=== PATIENT | female | born 1955 | race Caucasian/White ===

== ENCOUNTER 2019-11-09 13:37 | Emergency (ER) | payer MEDICAID ==
[~2019-11-09] VITALS: Ht 152.4 cm; Wt 50.0 kg
[2019-11-09 13:43] VITALS: BP 106/73
--- NOTE | 2019-11-09 14:39 | NUR ---
TERRY AT [facility] ACCEPTED PT AND TOLD NC MANAGER THAT A BED WILL BE AVABLE FOR PT
== END 2019-11-09 15:05 | disposition home or self-care (01) ==
LOC: ED 14:45
DX: F10.220 Alcohol dependence with intoxication, uncomplicated (principal); I10 Essential (primary) hypertension; Z90.710 Acquired absence of both cervix and uterus; Z88.8 Allergy status to other drugs, medicaments and biological substances; Y90.9 Presence of alcohol in blood, level not specified
CPT/HCPCS: 99283

== ENCOUNTER 2020-02-23 15:14 | Emergency (ER) | payer MEDICAID ==
[~2020-02-23] VITALS: Ht 152.4 cm; Wt 48.0 kg
[2020-02-23 15:47] VITALS: BP 139/106
[2020-02-23] MEDS ORDERED: SODIUM CHLORIDE 0.9% 1,000ML IVBOLUS ONE (16:00)
[2020-02-23] MEDS ORDERED: THIAMINE 50MG TABLET PO ONE (16:00)
[2020-02-23] MEDS ORDERED: SODIUM CHLORIDE FLUSH 10ML SYR IVF ONE (16:00)
[2020-02-23] MEDS ORDERED: LORazepam 2 MG/ML, 1ML IVPush ONE (16:00)
[2020-02-23] MEDS ORDERED: LORazepam 2 MG/ML, 1ML ONE (16:06)
[2020-02-23] MEDS ORDERED: THIAMINE 100MG TABLET ONE (16:06)
[2020-02-23 16:30] LABS: BASOPHILS % (AUTO) 1 % (0-1); EOSINOPHILS % (AUTO) 0 % (1-7); LYMPHOCYTES % (AUTO) 37 % (22-44); MEAN CORPUSCULAR HEMOGLOBIN 31.2 pg (27.0-34.8); MEAN CORPUSCULAR HGB CONC 33.2 g/dL (32.4-35.8); MEAN PLATELET VOLUME 6.9 fL (7.4-10.4); MONOCYTES % (AUTO) 7 % (2-9); NEUTROPHILS % (AUTO) 55 % (42-75); PLATELET COUNT 284 x10^3/uL (130-400); RED BLOOD COUNT 4.04 x10^6/uL (3.82-5.3); RED CELL DISTRIBUTION WIDTH 13.7 % (9.6-15.2)
[2020-02-23 16:33] LABS: MD NO
[2020-02-23 16:41] LABS: ALBUMIN 3.4 g/dL (3.4-5.0); ANION GAP 12 mmol/L (5-15); CALCIUM 8.1 mg/dL (8.5-10.1); CHLORIDE 111 mmol/L (98-107)
--- NOTE | 2020-02-23 16:42 | NUR ---
PT SIGNED OUT AMA. PT STATES SHE IS CHECKING HERSELF INTO [facility].
[2020-02-23 16:47] LABS: ALANINE AMINOTRANSFERASE 27 U/L (12-78); ALKALINE PHOSPHATASE 148 U/L (45-117); BILIRUBIN,TOTAL 0.6 mg/dL (0.2-1.0); CREATININE 0.85 mg/dL (0.55-1.02); TOTAL PROTEIN 7.5 g/dL (6.4-8.2)
== END 2020-02-23 16:43 | disposition left against medical advice (07) ==
LOC: ED 16:35
DX: F10.129 Alcohol abuse with intoxication, unspecified (principal); R11.2 Nausea with vomiting, unspecified; R19.7 Diarrhea, unspecified; I10 Essential (primary) hypertension; Z90.710 Acquired absence of both cervix and uterus; Y90.9 Presence of alcohol in blood, level not specified
CPT/HCPCS: 36415; 80053; 80307; 85025; 96374; 99283; J2060; J7030

== ENCOUNTER 2020-03-09 17:55 | Emergency (ER) | payer MEDICAID ==
[~2020-03-09] VITALS: Ht 152.4 cm; Wt 50.0 kg
--- NOTE | 2020-03-09 18:46 | NUR ---
pt in bed, no distress,
--- NOTE | 2020-03-09 18:57 | NUR ---
REPORT OF PT FROM TORREY RAY AND ASSUMING CARE OF PT AT THIS TIME. PT SITTING IN [facility] WITH ALINE. CALL LIGHT IS WITHIN REACH.
--- NOTE | 2020-03-09 19:42 | NUR ---
PT D/C WITH D/C SUMMARY AND A [facility]AXI VOUCHER TO [facility] PER PT REQUEST. PT AMBULATES TO REGISTRATION DESK WITH STEADY GAIT, AAO X 4, AND DENIES ANY OTHER NEEDS PERTAINING TO THIS VISIT. PT QUESTIONS ANSWERED AT THIS TIME. PT WITH STABLE VS PRIOR TO PT D/C.
[2020-03-09 19:44] VITALS: BP 114/72
== END 2020-03-09 19:48 ==
LOC: ED 18:56
DX: F10.220 Alcohol dependence with intoxication, uncomplicated (principal); I10 Essential (primary) hypertension; Z90.710 Acquired absence of both cervix and uterus; Y90.0 Blood alcohol level of less than 20 mg/100 ml
CPT/HCPCS: 99283